=== PATIENT | male | born 2000 | race African-American/Black ===

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

== ENCOUNTER 2019-01-05 09:14 | Outpatient (CLI) | payer OTHER ==
--- NOTE | 2019-01-05 11:18 | MRI ---
MRI LEFT KNEE: DATE: 01/05/2019. PROVIDED CLINICAL HISTORY: Pain status post injury. FINDINGS: The anterior cruciate ligament, posterior cruciate ligament, medial collateral ligament, and lateral collateral ligamentous complex demonstrate an intact MR appearance, as does the extensor mechanism. 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 There is complex nondisplaced tearing involving the body of the lateral meniscus peripherally. The medial meniscus demonstrates no evidence for a tear. No focal articular cartilage defect is apparent. There is a large knee joint effusion. Regional marrow and muscular signal appear normal. IMPRESSION: 1. Prominently discoid lateral meniscus with superimposed complex tear involving the periphery of th e body. 2. Large knee joint effusion. POS: OFF
== END 2019-01-05 09:15 | disposition home or self-care (01) ==
LOC: BICMRI 09:14
PROVIDERS: ATTEND Orthopaedic Surgery
DX: M25.562 Pain in left knee (principal); S83.272A Complex tear of lateral meniscus, current injury, left knee, initial encounter; M25.462 Effusion, left knee

== ENCOUNTER 2019-01-27 06:13 | Day surgery (SDC) | payer OTHER ==
[2019-01-26 14:07] VITALS: BMI 31.7
[2019-01-27] MEDS ORDERED: PROPOFOL 20 ML ONE (06:41)
[2019-01-27] MEDS ORDERED: Bupivacaine HCl 0.25%/Epi 0.0005/PF 10 ML VIAL FS ONE (08:26)
[2019-01-27] MEDS ORDERED: Bupivacaine HCl 0.5%/Epinephrine 1:200,000/PF 30 ml Vial ONE ×2 (08:26→10:53)
[2019-01-27] MEDS ORDERED: Fentanyl 100 MCG/2 ML VIAL ONE ×2 (08:55→10:14)
[2019-01-27] MEDS ORDERED: Ondansetron PF 4 MG/2 ML Vial ONE (10:53)
[2019-01-27] MEDS ORDERED: PROPOFOL 200 MG/20 ML VIAL ONE (10:53)
[2019-01-27] MEDS ORDERED: Ketorolac Tromethamine 30 MG/ML VIAL ONE (10:53)
[2019-01-27] MEDS ORDERED: Lidocaine 2% w/Epinephrine 1:200K 20 ML VIAL ONE (10:53)
--- NOTE | 2019-01-27 12:24 | OP ---
DATE OF PROCEDURE: 01/27/2019 PREOPERATIVE DIAGNOSIS: Torn lateral meniscus. POSTOPERATIVE DIAGNOSIS: Torn discoid lateral meniscus. PROCEDURE PERFORMED: Left knee arthroscopy with lateral meniscus repair and partial saucerization of a discoid lateral meniscus. SUSTAINABILITY OFFICER: Kyler Pabon PA-C ESTIMATED BLOOD LOSS: Minimal. COMPLICATIONS: None. ANESTHESIA: He had a general anesthetic. He had a local knee block. DISPOSITION: He did go to recovery room in stable condition. IMPLANTS: The only implants used were sutures. INDICATIONS: This is a 18-year-old male, who about 3 weeks ago, hurt his knee while playing football. At this time, he continued to have significant pain and swelling, was found to have a tear of the meniscus and at this time opted for surgery. DESCRIPTION OF PROCEDURE: After all appropriate consent forms were explained and signed, he was taken back to the operative room and at this time was given general anesthetic. Once the level of anesthesia was appropriate, a tourniquet was placed on left thigh and leg was placed in arthroscopic leg carpio. The limb was then prepped and draped in standard surgical fashion. The limb was exsanguinated and the tourniquet was taken to 300 mmHg. Inferolateral portal was established. Scope was placed into the knee joint. A needle localization technique was then used to make a medial working portal. Diagnostic arthroscopy commenced in the notch. The ACL and PCL were probed, found to be intact. The lateral meniscus looked like it was sitting in front of the lateral femoral condyle. At this time, we turned our attention to the medial compartment. Femur, tibia, and medial meniscus were probed. There were some scuffing noted on the anteromedial femur right next to the notch. No full-thickness defects were noted. There was no unstable chondral flaps. This was left alone. The meniscus itself was intact. Tibia was good. At this time , we then looked in the gutter. No loose bodies were noted. The patellofemoral joint was in good condition. The lateral gutter was clean. We then turned our attention to the lateral compartment. It was evident that this was not a normal meniscus , but rather a discoid lateral meniscus as we could see none of the tibia underneath and tear was found along the periphery. 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 Again, the anterior horn was intact. The majority of the body was intact. There were some significant scuffing on the top part of the meniscus with maybe a 10% to 15% of the meniscus torn. This was cleaned up with a shaver. The shaver was also introduced into the capsular area, where the tearing was noted, removed any free fragments and cleaned this up to get a good edge. At this time, we took the meniscal Scorpion, placed a suture through the body of the meniscus in its most anterior portion of the tear and then brought the suture ends through the medial portal and the PassPort Button so we would not have any soft tissue get intertwined in the sutures. We then took a Micro SutureLasso and popped in just above the capsule and pulled the wire loop out the medial portal, and used this to pull the top suture out of the knee. Once this was done, we then took the bottom suture through the meniscal Scorpion again and popped it through the meniscus from bottom to top and then pulled it back out the medial portal. We then used the Micro SutureLasso to retrieve this suture. These were not tied, but rather left outside the skin. Once this was done, we then placed our scope through the medial portal and we took our meniscal Scorpion and grabbed hold of the meniscus and capsule just anterior to the popliteus and passed this through a nice piece of tissue. From here, we then took our ant jaw underneath the meniscus and grabbed our lower suture. We then loaded this lower suture into the meniscal Scorpion and passed it through the meniscus itself from bottom to top. We then placed the scope back in the lateral portal and through the PassPort Button the sutures, made sure they were not attached or intertwined and then tied an arthroscopic knot effectively closing our meniscus to our capsule just anterior to the popliteus. The lateral meniscus was pulled into a more normal position and we felt that this would be our repair as trying to do anything more would risk the repair we already had. At this time, we did do a little bit of saucerization of the most medial aspect of the lateral meniscus and removed these portions of the meniscus itself. We then took a K-wire through the lateral portal, drilled multiple holes into the medial femoral condyle in the notch area to promote healing postoperatively. Once this was done, I pulled the scope, drained the knee. We then went about tying our lateral sutures. A small incision was made down through skin. Bovie was used to coagulate any brisk venous bleeding. We then got down to the underlying IT band. IT band was split inline with its fibers. The sutures were pulled down through this opening and then tied down on the capsule. We then closed our IT band with interrupted Vicryls, followed by 2-0 and nylon sutures to close the small skin incision. Portals were each closed with nylon as well. At this time, the patient was then awakened. He was taken to the recovery room in stable condition. All counts were correct at the end of the case and he did receive preoperative IV antibiotics. We did placement of bulky sterile dressing prior to let the tourniquet down and put him in a knee immobilizer. Again, toes pinked up nicely after letting the tourniquet down. Job ID: [id number] [facility]
[2019-01-27] MEDS ORDERED: Morphine 2 MG/ML SYRINGE ONE (13:37)
== END 2019-01-27 13:55 | disposition home or self-care (01) ==
LOC: SDC 06:13
PROVIDERS: ATTEND Orthopaedic Surgery
PROC: 0SQD4ZZ Repair Left Knee Joint, Percutaneous Endoscopic Approach (ICD-10-PCS; principal; 2019-01-27)
DX: S83.282A Other tear of lateral meniscus, current injury, left knee, initial encounter (principal); W18.30XA Fall on same level, unspecified, initial encounter; Y93.61 Activity, american tackle football
CPT/HCPCS: J0670; J0690; J1885; J2270; J2405; J2704; J3010